=== PATIENT | male | born 1970 | race Caucasian/White ===

== ENCOUNTER 2019-12-16 21:28 | Outpatient (REF) | payer BC, SELFPAY ==
[2019-12-16 20:36] LABS: Calculated LDL 114 mg/dL (<100); Cholesterol 165 mg/dL (<200); HDL Cholesterol 40 mg/dL (40-60); Triglyceride 58 mg/dL (<150)
== END 2019-12-16 21:48 ==
LOC: NCHCN 21:28
PROVIDERS: PCP Family Medicine; Visit Provider Nurse Practitioner Family
DX: Z00.00 Encounter for general adult medical examination without abnormal findings (principal); Z13.220 Encounter for screening for lipoid disorders
CPT/HCPCS: 80061